=== PATIENT | female | born 1985 | race American Indian/Alaskan Native ===

== ENCOUNTER 2017-02-17 08:54 | Emergency (ER) | payer OTHER ==
[2017-02-17 09:12] VITALS: BMI 39.0
[2017-02-17 09:15] VITALS: O2SAT 100
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
[2017-02-17 10:26] VITALS: BP 121/83; PULSE 60; RESP 20; TEMP 97.7
== END 2017-02-17 10:26 | disposition home or self-care (01) ==
LOC: C.ER 08:54
DX: S29.012A Strain of muscle and tendon of back wall of thorax, initial encounter (principal); V49.40XA Driver injured in collision with unspecified motor vehicles in traffic accident, initial encounter